=== PATIENT | male | born 1980 | race African-American/Black ===

== ENCOUNTER → 2021-10-06 | Outpatient (CLI) | payer MEDICAID ==
[~2021-10-06] MED LIST: IBUP400T22 PO; IBUP800T27 PO; NAP500T PO
== END | disposition home or self-care (01) ==
LOC: Rad HDHVI 14:28
PROVIDERS: ATTEND Internal Medicine Cardiovascular Disease
DX: I05.0 Rheumatic mitral stenosis (principal); I35.0 Nonrheumatic aortic (valve) stenosis
CPT/HCPCS: 93306